=== PATIENT | male | born 1930 | race African-American/Black ===

== ENCOUNTER 2017-04-09 09:21 | Inpatient (IN) | payer OTHER, MEDICARE ==
[~2017-04-09] VITALS: Ht 172.7 cm; Wt 84.4 kg
[2017-04-09] MEDS ORDERED: AMLO5TAB4 PO (09:26)
[2017-04-09 10:23] LABS: BASOPHILS % 0.8 % (0.0-2.0); HEMATOCRIT. 37.4 % (42.0-52.0); HEMOGLOBIN. 12.5 g/dL (14.0-18.0); LYMPHOCYTES % 43.6 % (20.0-50.0); MEAN CORPUSCULAR HEMOGLOBIN 28.4 pg (28.0-32.0); MEAN CORPUSCULAR VOLUME 85.4 fL (80.0-94.0); MEAN PLATELET VOLUME 9.3 fl (7.4-10.4); MONOCYTES % 8.5 % (2.0-8.0); NEUTROPHILS % 45.1 % (40.0-76.0); PLATELET 295 x1000/uL (130-400); RED BLOOD CELL COUNT 4.38 mill/uL (4.7-6.1); RED CELL DISTRIBUTION WIDTH 15.8 % (11.6-14.6)
[2017-04-09 10:31] LABS: PROTHROMBIN TIME 10.8 sec (9.4-11.6)
[2017-04-09 10:36] LABS: CARBON DIOXIDE 22 mEq/L (21-32); CHLORIDE 106 mEq/L (98-107)
[2017-04-09 10:40] LABS: TROPONIN I < 0.02 ng/mL (0.00-0.04)
[2017-04-09] MEDS ORDERED: LEVOFLOXACIN 750MG PREMIX 150 ML IV ONE (14:16)
[2017-04-09] MEDS ORDERED: LEVOFLOXACIN 750MG PREMIX 150 ML IV NR (15:00)
[2017-04-09 16:17] VITALS: BP 153/59
[2017-04-09] MEDS ORDERED: CLONIDINE 0.1MG TABLET PO PRN (18:30)
[2017-04-09] MEDS ORDERED: ZOLPIDEM TARTRATE 5MG TABLET PO PRN (18:30)
[2017-04-09] MEDS ORDERED: TRAMADOL 50MG TABLET PO PRN (18:39)
[2017-04-09 19:34] LABS: CREATINE KINASE 70 IU/L (39-308); CREATINE KINASE MB FRACTION 1.3 ng/mL (0.5-3.6); TROPONIN I < 0.02 ng/mL (0.00-0.04)
[2017-04-09 20:00] VITALS: BP 142/62
[2017-04-09] MEDS ORDERED: PNEUMOCOCCAL 23-VAL P-SAC VAC 0.5 ML IM ONE (21:00)
[2017-04-09] MEDS ORDERED: INFLUENZA VIRUS VACCINE 0.5ML SYR IM ONE (21:00)
[2017-04-09] MEDS: SODIUM CHLORIDE 0.9% 1,000 ML IV SCH (21:16)
[2017-04-10] VITALS: BP 148/73
[2017-04-10 08:00] VITALS: BP_SYST 114; BP_SYST 93; BP_DIAS 59; BP_DIAS 83
[2017-04-10 08:21] LABS: HEMATOCRIT 36.5 % (42.0-52.0); HEMOGLOBIN 12.3 g/dL (14.0-18.0); MEAN CORPUSCULAR HEMOGLOBIN 28.9 pg (28.0-32.0); MEAN CORPUSCULAR VOLUME 85.8 fL (80.0-94.0); PLATELET 272 x1000/uL (130-400); RED BLOOD CELL COUNT 4.26 mill/uL (4.7-6.1)
[2017-04-10] MEDS ORDERED: ASPIRIN 81MG TABLET PO SCH (09:00)
[2017-04-10] MEDS: ENOXAPARIN 40MG/0.4ML SYR SUBCUT SCH (10:00)
[2017-04-10] MEDS ORDERED: OMEP20CA10 PO (10:19)
[2017-04-10] MEDS ORDERED: ATOR-2 PO (10:25)
[2017-04-10] MEDS ORDERED: LISI10TA5 PO (10:25)
[2017-04-10] MEDS ORDERED: CHOL100044 PO (10:25)
[2017-04-10] MEDS ORDERED: ASPI-1159 PO (10:25)
[2017-04-10] MEDS: SODIUM CHLORIDE 0.9% 1,000 ML IV SCH (10:28)
[2017-04-10 12:00] VITALS: BP 117/54
[2017-04-10] MEDS: ASPIRIN 81MG EC TABLET PO SCH (12:30)
[2017-04-10] MEDS: AMLODIPINE 5MG TABLET PO SCH (13:13)
[2017-04-10 13:14] LABS: CREATINE KINASE MB FRACTION 2.8 ng/mL (0.5-3.6); TROPONIN I 0.05 ng/mL (0.00-0.04)
[2017-04-10] MEDS: OMEPRAZOLE 20MG CAPSULE EXTENDED RELEASE PO SCH (13:14)
[2017-04-10] MEDS: LISINOPRIL 10MG TABLET PO SCH (13:14)
[2017-04-10] MEDS: CHOLECALCIFEROL (D3) 1000 UNIT TABLET PO SCH (13:14)
[2017-04-10 16:00] VITALS: BP 108/55
[2017-04-10 20:00] VITALS: BP 91/55
[2017-04-10] MEDS: METOPROLOL TARTRATE 25MG TABLET PO SCH (21:00)
[2017-04-11] VITALS: BP 110/61
[2017-04-11] MEDS: METOPROLOL TARTRATE 25MG TABLET PO SCH ×4 (00:45→09:12)
[2017-04-11 04:00] VITALS: BP 106/52
[2017-04-11] MEDS: OMEPRAZOLE 20MG CAPSULE EXTENDED RELEASE PO SCH (06:30)
[2017-04-11 08:00] VITALS: BP 106/80
[2017-04-11] MEDS: CHOLECALCIFEROL (D3) 1000 UNIT TABLET PO SCH (08:34)
[2017-04-11] MEDS: LISINOPRIL 10MG TABLET PO SCH (08:34)
[2017-04-11] MEDS: AMLODIPINE 5MG TABLET PO SCH (08:34)
[2017-04-11] MEDS: ASPIRIN 81MG EC TABLET PO SCH (08:34)
[2017-04-11] MEDS: ENOXAPARIN 40MG/0.4ML SYR SUBCUT SCH (08:35)
[2017-04-11] MEDS ORDERED: SODIUM CHLORIDE 0.9% 500 ML IV ONE (09:00)
[2017-04-11] MEDS ORDERED: SODIUM CHLORIDE 0.9% 1,000 ML IV SCH (09:15)
[2017-04-11 10:20] LABS: *AMPHETAMINES SCREEN URINE NEGATIVE (NEGATIVE); *BARBITURATES SCREEN URINE NEGATIVE (NEGATIVE); *BENZODIAZEPINES SCREEN URINE NEGATIVE (NEGATIVE); *COCAINE SCREEN URINE NEGATIVE (NEGATIVE); CANNABINOID URINE SCREEN NEGATIVE (NEGATIVE); METHADONE URINE SCREEN NEGATIVE (NEGATIVE); OPIATES URINE SCREEN PRESUMTIVE POSITIVE (NEGATIVE); PHENCYCLIDINE URINE SCREEN NEGATIVE (NEGATIVE)
[2017-04-11 10:48] VITALS: BP 106/80
[2017-04-11 11:58] VITALS: BP_SYST 111; BP_SYST 163; BP_DIAS 72; BP_DIAS 86
[2017-04-11 15:00] VITALS: BP 133/50
[2017-04-12] MEDS ORDERED: FAMOTIDINE 20MG TABLET PO SCH (09:00)
== END 2017-04-11 15:55 | disposition short-term general hospital (02) | DRG 682 ==
LOC: ER 09:32 → ENRESERV 10:56 → 8WST 13:49 → EDBEDREQTM 13:50 → EDBEDREQ 13:50
PROVIDERS: ADMIT Hospitalist; ATTEND Hospitalist
DX: N17.0 Acute kidney failure with tubular necrosis (principal); G93.40 Encephalopathy, unspecified; I47.1 Supraventricular tachycardia; D64.9 Anemia, unspecified; I10 Essential (primary) hypertension; R55 Syncope and collapse
CPT/HCPCS: 36415; 71010; 80048; 80053; 80305; 82550; 82553; 83880; 84484; 85025; 85027; 85610; 87040; 93005; 93970; 99285; J1650; J1956; J7030